=== PATIENT | male | born 1950 | race Caucasian/White ===

== ENCOUNTER 2019-08-02 10:28 | Observation (INO) ==
--- NOTE | 2019-07-28 16:12 | Anesthesiology Consultation ---
Date of Service July 28, 2019 Assessment & Plan Chart Review Chart Review: Acceptable Risk for Surgery and Patient NOT seen in Pre Admission Testing Consults Requested none History Surgery Operation Date: 08/02/19 12:25 Proposed Procedures p Greenlight Transurethral Resection of Prostate, Photoselective Vaporization of the Prostate using Greenlight Laser - Manoj Tomas II, DO Height/Weight Height: 5 ft 10 in Weight: 85.275 kg Allergies Allergy/AdvReac Type Severity Reaction Status Date / Time No Known Allergies Allergy Verified 07/28/19 08:41 Medications Home Medications Medication Instructions Recorded Confirmed Last Taken amlodipine 5 mg tablet 5 mg PO HS 07/27/19 07/28/19 Unknown atorvastatin 20 mg tablet 20 mg PO HS 07/27/19 07/28/19 Unknown finasteride 5 mg tablet 5 mg PO HS 07/27/19 07/28/19 Unknown cyanocobalamin (vitamin B-12) 1,000 mcg PO QAM 07/28/19 07/28/19 Unknown doxycycline hyclate 100 mg PO UD PRN 07/28/19 07/28/19 Unknown ezetimibe 10 mg PO QAM 07/28/19 07/28/19 Unknown lisinopril 40 mg PO QAM 07/28/19 07/28/19 Unknown multivitamin 1 tab PO DAILY 07/28/19 07/28/19 Unknown pantoprazole 40 mg PO QAM 07/28/19 07/28/19 Unknown rivaroxaban [Xarelto] 20 mg PO PM 07/28/19 07/28/19 Unknown tolterodine 4 mg PO HS 07/28/19 07/28/19 Unknown Past Medical History Medical History Urinary frequency BPH (benign prostatic hyperplasia) Atrial fibrillation REASON FOR XARELTO (FOLLOW WITH DR. GONZALEZ IN [facility]) Barretts esophagus GERD (gastroesophageal reflux disease) Hyperlipidemia Hypertension Past Family History Family History Father Hypertension Past Surgical History Surgical History History of colonoscopy History of esophagogastroduodenoscopy (EGD) History of herniorrhaphy RT/LEFT INGUINAL Social History Smoking Status: Never smoker Do You Dip or Chew Tobacco: No Hx Alcohol Use: Yes Alcohol type: beer alcohol intake frequency: a few times a month Hx Substance Use: No substance use type: does not use Testing Laboratory Results WBC: 4.7 H/H: 13.7/41.9 PLATELETS: 320 SODIUM: 135 POTASSIUM: 4.3 CHLORIDE: 100 CO2: 28 BUN: 14 CREATININE: 0.99 GLUCOSE: 110 Electrocardiogram Date: 06/24/19 Findings: + NSR @ (64) voltage criteria for LVH, possibly biventricular hypertrophy Echocardiogram Date: 03/21/18 EF: 55-60% LV Function: normal Other Findings: + diastolic dysfunction (grade 1) Nl RV function, mild tricuspid regurg, borderline aortic root dilation
[~2019-08-02 10:28] MED LIST: CEFAZOLIN 2000MG 2,000 MG/15 ML SYR IV SCH; LR 15ML/HR IV SCH
--- NOTE | 2019-08-02 10:34 | History & Physical Bridge Note ---
Date of Service August 02, 2019 History & Physical Bridge Note I have examined the patient, reviewed the History & Physical and in the interval since the performance of the History & Physical I have noted the following changes of clinical significance: no changes noted
[2019-08-02] MEDS ORDERED: fentaNYL citrate 100 MCG/2 ML VIAL ONE (10:39)
[2019-08-02] MEDS ORDERED: LIDOCAINE HCL 2% 2 ML VIAL/AMP(20MG/ML) INFIL ONE (10:39)
[2019-08-02] MEDS ORDERED: PROPOFOL IV EMULSION 10 MG/ML 20 ML VIAL IV ONE (10:39)
[2019-08-02] MEDS ORDERED: DEXAMETHASONE SOD INJ 4 MG/ML VIAL ONE (10:39)
[2019-08-02] MEDS ORDERED: ONDANSETRON INJ 2 MG/ML 2 ML VIAL ONE (10:39)
[2019-08-02] MEDS ORDERED: HYDROmorphone INJ 1 MG/ML SYRINGE IV PRN (11:13)
[2019-08-02] MEDS ORDERED: ONDANSETRON INJ 2 MG/ML 2 ML VIAL IV PRN ×2 (11:13→15:22)
[2019-08-02] MEDS ORDERED: fentaNYL citrate 100 MCG/2 ML VIAL IV PRN (11:13)
[2019-08-02] MEDS ORDERED: ePHEDrine sulfate 50 MG/ML AMP IV PRN (11:13)
[2019-08-02] MEDS ORDERED: ATROPINE SULFATE 0.1 MG/ML 10ML SYR IV PRN (11:13)
[2019-08-02] MEDS ORDERED: ePHEDrine sulfate 50 MG/ML SYR ONE (12:55)
[2019-08-02] MEDS ORDERED: KETOROLAC 30 MG/ML VIAL ONE (12:55)
[2019-08-02] MEDS ORDERED: BELLADONNA/OPIUM SUPP 60 MG SUPP PR ONE ×2 (13:29→13:33)
--- NOTE | 2019-08-02 13:45 | Operative Report ---
Post Operative Report Pre & Post Diagnosis Operation Date: 08/02/19 11:05 Pre-Op Diagnosis: Benign Prostate Hyperplasia w/Urinary Obstruction Post-Op Diagnosis: Benign Prostate Hyperplasia w/Urinary Obstruction Procedure Operation Date: 08/02/19 11:05 Actual Procedures p Greenlight Photoselective Vaporization of the Prostate with enucleation of lateral lobes and transurethral resection of prostate and adenoma with bipolar loop. - Manoj Tomas II, DO Surgeon Manoj Tomas II, DO Workforce Development Vice President None Estimated Blood Loss 10 Findings Consistent with Post-Op Diagnosis Extremely large prostate with large lateral lobes. Specimens Prostate adenoma and resection chips. Drains [address]ter 30 cc balloon Anesthesia Type General Complications none Disposition Disposition: Recovery Room Indications Extremely large prostate with GH issues and on Xarelto for antiocoagulation. Risks and benefits discussed at length. Description of Procedure Patient was consented and brought back to the operating room. Patient was placed under anesthesia in the supine position and moved to the dorsal lithotomy position. Patient was prepped and draped in the regular sterile fashion. A time out was completed. A 30degree Cystoscope was placed into the bladder and the entire bladder was examined. The prostate was found to be extremely large and easily bleeding from large varicosity. The scope with laser bridge was placed. The 5 and 7 oclock channels were created with vaporization from bladder neck to region of veru. All important structures were identified prior to starting. The channels were then connected by vaporizing between the 5 - 8 oclock to vaporize the median lobe. The 1 and 11 oclock positions were then vaporized down to capsule. Starting on the left, the large lateral lobe was enuculeated from 1 to 6 oclock and placed into the bladder. This was then completed on the right from 11 to 8 oclock. The large adenomas were displaced into the bladder. The resection bed was then further vaporized. A large amount of prostate stones were discovered on the right. The anterior portion was also vaporized to debulk. Good vaporization had been achieved with opening of the channel. The reseciton scope with a bipolar loop was resected. Additional tissue was resected around the prostate. The large ad enomas in the bladder were resected into segments for removal. This was all irrigated and sent for analysis. The entire bladder and resection bed and urethra were inspected a final time. ALl bleeding had been controlled. The scope was removed. A [address] was [address] and clear fluid drained. The side port was plugged. The patient was cleaned, aroused from anesthesia, and transferred to the pacu in stable condition having tolerated the procedure well with no complications. I was present and participated in all aspects of the procedure. The patient will be monitored in the PACU until transferred. I attest to the content of the Intraoperative Record and any orders documented therein. Any exceptions are noted below.
--- NOTE | 2019-08-02 14:25 | Anesthesiology Progress Note ---
Date of Service August 02, 2019 Anesthesia Post Procedure Vital Signs Vital Signs: Temp Pulse Pulse Resp BP Pulse Ox 08/02/19 14:15 59 L 15 120/66 97 08/02/19 14:05 58 L 14 123/72 100 08/02/19 13:55 59 L 12 115/60 100 08/02/19 13:48 36.1 C L 64 10 L 122/67 98 08/02/19 10:52 36.5 C 55 L 18 136/72 99 Pain Intensity Penis: Pain Intensity: 0 Transfer of Care Handoff Completed per policy Notes Mental Status: alert / awake / arousable and participated in evaluation Patient Amnestic to Procedure: Yes Nausea / Vomiting: adequately controlled Pain: adequately controlled Airway Patency, RR, SpO2: stable & adequate BP & HR: stable & adequate Hydration State: stable & adequate Anesthetic Complications: no major complications apparent and Pt Satisfied with anesthetic care
[2019-08-02] MEDS ORDERED: BELLADONNA/OPIUM SUPP 60 MG SUPP PR PRN (15:22)
[2019-08-02] MEDS ORDERED: OXYCODONE HCL IR 5 MG TAB (IMMEDIATE RELEASE) PO PRN (15:22)
[2019-08-02] MEDS ORDERED: MoRPHine SULFATE 2 MG/ML CARP IV PRN (15:22)
[2019-08-02] MEDS ORDERED: SODIUM CHLORIDE 0.9% 1000ML 1,000 ML IV SCH (15:22)
[2019-08-02] MEDS ORDERED: DOXYCYCLINE HYCLATE 100 MG CAP PO PRN (15:22)
[2019-08-02 15:43] LABS: Basophils # (auto) 0.01 K/uL (0-0.2); Basophils % (auto) 0.1 %; Eosinophils # (auto) 0.03 K/uL (0-0.5); Eosinophils % (auto) 0.3 %; Hematocrit (blood only) 40.1 % (42-52); Hemoglobin 13.4 g/dL (14.0-18.0); Immature Granulocytes # (auto) 0.02 K/uL (0.00-0.02); Immature Granulocytes % (auto) 0.2 %; Lymphocytes # (auto) 0.78 K/uL (1.2-3.4); Lymphocytes % (auto) 6.7 %; Mean Corpuscular Hemoglobin 28.5 pg (25-34); Mean Corpuscular Hgb Conc 33.4 g/dL (32-36); Mean Corpuscular Volume 85.3 fL (80-100); Mean Platelet Volume 9.5 fL (7.4-10.4); Monocytes # (auto) 0.14 K/uL (0.11-0.59); Monocytes % (auto) 1.2 %; Neutrophils # (auto) 10.59 K/uL (1.4-6.5); Neutrophils % (auto) 91.5 %; Platelet Count 274 K/uL (130-400); RDW Coefficient of Variation 13.7 % (11.5-14.5); RDW Standard Deviation 42.6 fL (36.4-46.3); White Blood Count 11.57 K/uL (4.8-10.8)
[2019-08-02 16:44] LABS: Alanine Aminotransferase 30 U/L (12-78); Albumin Globulin Ratio 1.2 (0.9-2); Albumin Level 3.5 gm/dl (3.4-5.0); Alkaline Phosphatase 80 U/L (45-117); Aspartate Aminotransferase 18 U/L (15-37); BUN Creatinine Ratio 12.1 (10-20); Bilirubin,Total 0.4 mg/dl (0.2-1); Blood Urea Nitrogen 12 mg/dl (7-18); Calcium 8.3 mg/dl (8.5-10.1); Chloride 104 mmol/L (98-107); Creatinine Clr Calc Pharmacy 73.5 ml/min; Est GFR (African American) 90.8; Est GFR (Non-African American) 78.4; Glucose 111 mg/dl (70-99); Potassium 4.1 mmol/L (3.5-5.1); Sodium 138 mmol/L (136-145); Total Protein 6.5 gm/dl (6.4-8.2)
[2019-08-02 19:10] LABS: Anion Gap 1.2 (3-11)
[2019-08-02] MEDS: DOCUSATE SODIUM 100 MG CAP PO SCH (20:50)
[2019-08-02] MEDS ORDERED: AMLODIPINE BESYLATE 5 MG TAB PO SCH (21:00)
[2019-08-02] MEDS ORDERED: FINASTERIDE 5 MG TAB PO SCH (21:00)
[2019-08-02] MEDS ORDERED: ATORVASTATIN 20 MG TAB PO SCH (21:00)
[2019-08-02] MEDS ORDERED: TOLTERODINE TARTRATE LA 4 MG CAPCR PO SCH (21:00)
[2019-08-02] MEDS ORDERED: Nursing to Pharmacy Communication ONE (22:17)
--- NOTE | 2019-08-03 07:44 | Anesthesiology Progress Note ---
Date of Service August 03, 2019 Anesthesia Post Procedure Vital Signs Vital Signs: Temp Pulse Pulse Resp BP BP Pulse Ox 08/03/19 04:00 37 C 59 L 16 114/60 97 08/02/19 23:10 36.6 C 61 16 102/42 L 97 08/02/19 22:11 08/02/19 20:47 59 L 116/69 08/02/19 18:16 36.7 C 60 16 117/68 93 08/02/19 17:23 36.6 C 61 18 110/67 97 08/02/19 16:30 36.4 C L 66 12 106/59 L 98 08/02/19 15:57 36.0 C L 64 12 101/58 L 96 08/02/19 15:49 36.4 C L 61 16 107/59 L 98 08/02/19 15:24 36.4 C L 63 14 112/65 97 08/02/19 15:10 36.4 C L 59 L 14 109/68 98 08/02/19 14:55 36.4 C L 60 14 121/64 96 08/02/19 14:45 36.4 C L 55 L 14 127/70 96 08/02/19 14:35 36.4 C L 57 L 14 107/75 96 08/02/19 14:25 56 L 14 113/69 98 08/02/19 14:15 59 L 15 120/66 97 08/02/19 14:05 58 L 14 123/72 100 08/02/19 13:55 59 L 12 115/60 100 08/02/19 13:48 36.1 C L 64 10 L 122/67 98 08/02/19 10:52 36.5 C 55 L 18 136/72 99 Pulse Ox 08/03/19 04:00 08/02/19 23:10 08/02/19 22:11 94 08/02/19 20:47 08/02/19 18:16 08/02/19 17:23 08/02/19 16:30 08/02/19 15:57 08/02/19 15:49 08/02/19 15:24 08/02/19 15:10 08/02/19 14:55 08/02/19 14:45 08/02/19 14:35 08/02/19 14:25 08/02/19 14:15 08/02/19 14:05 08/02/19 13:55 08/02/19 13:48 08/02/19 10:52 Pain Intensity Penis: Pain Intensity: 0 Notes Mental Status: alert / awake / arousable and participated in evaluation Patient Amnestic to Procedure: Yes Nausea / Vomiting: adequately controlled Pain: adequately controlled Airway Patency, RR, SpO2: stable & adequate BP & HR: stable & adequate Hydration State: stable & adequate Anesthetic Complications: no major complications apparent
[2019-08-03] MEDS: DOCUSATE SODIUM 100 MG CAP PO SCH (08:38)
--- NOTE | 2019-08-03 08:55 | Urology Progress Note ---
Date of Service August 03, 2019 Assessment & Plan (1) BPH (benign prostatic hyperplasia): POD #1 s/p GLTURP with Dr. Tomas Tolerating PO, ambulating independently. Sim draining red urine, no clots. VSS, afebrile. Pt is doing well, pain controlled. Plan to discharge home with sim catheter in place. Hold Xarelto for 2 additional days, okay to restart on . Okay to discharge home after lunch, with sim catheter. Expected clinical course reviewed. Subjective 69yo M POD #1 s/p GLTURP with Dr. Tomas. Uneventful evening, he did not get great sleep but relates this to environment change. Tolerating PO without difficulty. No flatus yet but feels he may try to have BM soon. 3-way sim intact, draining pink/red tinged urine to gravity. Pt denies suprapubic pain or bladder spasms. Denies n/v/f/c. Denies cp/sob. Review of Systems Review of Systems: All systems reviewed & are unremarkable except as noted in HPI & below Physical Exam Constitutional: no acute distress and not ill appearing Eyes: no nystagmus ENMT: Ears: no hearing impairment Neck: trachea midline Respiratory: no respiratory distress and no cough Cardiovascular: Vessels: no JVD Chest (Breasts): Chest: normal inspection of chest Gastrointestinal (Abdomen): Inspection/Auscultation: abdomen not distended and no abdominal edema Percussion/Palpation: abdomen soft; abdomen nontender Musculoskeletal: Head/Neck/Chest: normocephalic and head atraumatic Skin: no rashes, warm and dry Neurologic: awake; not confused and not obtunded Psychiatric: Orientation: alert and oriented x 3 Eye Contact: good eye contact Affect: no depressed affect Genitourinary: no CVA tenderness sim draining red, no clots. Mild clotting to tip of penis. Lymphatic: no lymphadenopathy and no lymphedema Results & Data Vital Signs (Past 12 Hours) Vital Signs Temp Pulse Resp BP Pulse Ox Pulse Ox 08/03/19 08:13 97 08/03/19 07:32 37.0 C 59 L 16 121/71 97 08/03/19 04:00 37 C 59 L 16 114/60 97 08/02/19 23:10 36.6 C 61 16 102/42 L 97 08/02/19 22:11 94 Laboratory Results Laboratory Results - last 48 hr 08/02/19 08/02/19 15:30 15:30 WBC 11.57 H RBC 4.70 Hgb 13.4 L Hct 40.1 L MCV 85.3 MCH 28.5 MCHC 33.4 RDW Std Deviation 42.6 RDW Coeff of Jailyn 13.7 Plt Count 274 MPV 9.5 Immature Gran % (Auto) 0.2 Neut % (Auto) 91.5 Lymph % (Auto) 6.7 Morrison % (Auto) 1.2 Eos % (Auto) 0.3 Baso % (Auto) 0.1 Immature Gran # (Auto) 0.02 Neut # (Auto) 10.59 H Lymph # (Auto) 0.78 L Morrison # (Auto) 0.14 Eos # (Auto) 0.03 Baso # (Auto) 0.01 Sodium 138 Potassium 4.1 Chloride 104 Carbon Dioxide TNP Anion Gap 1.2 L BUN 12 Creatinine 0.98 Est Cr Clr Drug Dosing 73.5 Est GFR ( Amer) 90.8 Est GFR (Non-Af Amer) 78.4 BUN/Creatinine Ratio 12.1 Glucose 111 H Calcium 8.3 L Total Bilirubin 0.4 AST 18 ALT 30 Alkaline Phosphatase 80 Total Protein 6.5 Albumin 3.5 Globulin 3.0 Albumin/Globulin Ratio 1.2
[2019-08-03] MEDS ORDERED: CYANOCOBALAMIN 500 MCG TABLET (VITAMIN B-12) PO SCH (09:00)
[2019-08-03] MEDS ORDERED: LISINOPRIL 40 MG TAB PO SCH (09:00)
[2019-08-03] MEDS ORDERED: EZETIMIBE 10 MG TABLET PO SCH (09:00)
[2019-08-03] MEDS ORDERED: PANTOprazole 40 MG TAB PO SCH (09:00)
--- NOTE | 2019-08-03 10:45 | Discharge Summary ---
Date of Service August 03, 2019 Principal Diagnosis BPH with LUTS Discharge Exam Constitutional no acute distress and not ill appearing Eyes no nystagmus ENMT Ears: no hearing impairment Neck trachea midline Respiratory no respiratory distress and no cough Cardiovascular Vessels: no JVD Chest (Breasts) Chest: normal inspection of chest Gastrointestinal (Abdomen) Inspection/Auscultation: abdomen not distended and no abdominal edema Percussion/Palpation: abdomen soft; abdomen nontender Musculoskeletal Head/Neck/Chest: normocephalic and head atraumatic Skin no rashes, warm and dry Neurologic awake; not confused and not obtunded Psychiatric Orientation: alert and oriented x 3 Eye Contact: good eye contact Affect: no depressed affect Genitourinary hematuria mild clot around tip of penis 3-way catheter intact Lymphatic no lymphadenopathy and no lymphedema Discharge Data Allergies Allergy/AdvReac Type Severity Reaction Status Date / Time No Known Allergies Allergy Verified 08/02/19 10:47 Procedures Performed Operation Date: 08/02/19 11:05 Actual Procedures p Greenlight Transurethral Resection of Prostate, Photoselective Vaporization of the Prostate using Greenlight Laser, (Not Applicable) - Manoj Tomas II, DO s Transurethral Resection of Prostate with loop (Not Applicable) - Manoj Tomas II, DO Hospital Course (1) BPH (benign prostatic hyperplasia): Pt admitted for scheduled GLTURP by Dr. Tomas on 08/02/2019. Kept overnight for observation. Pt doing well, tolerated PO this AM. No complications observed. VSS, afebrile. Sim draining pink/red without clots. Pt is ready for discharge. Total Time Total Time Spent Total Time Spent (In Minutes): 15 Total Time Includes: Examination of the Patient, Discharge Planning, Medication Reconciliation and Communication With Other Providers Discharge Plan Discharge Items Patient Disposition: Home - Self-Care Reason For Visit: Benign Prostate Hyperplasia w/Urinary Obstruction Discharge Diagnosis: Same Discharge Goals: Decrease discomfort Activity: Resume your previous activity Lifting: No more than 10 pounds Bathing: Keep incision dry Sexual Activity: Wait until after follow-up appointment Exercise/Sports: Wait until after follow-up appointment Driving/Machine Use: Resume 1 day after discharge Non-emergency contact: Urologist Call non-emergency contact if: you have any medication questions, your symptoms worsen, your pain is not controlled, your pain is worsening, your pain is unusual for you, your pain is concerning for you and you have a fever Follow-up/Referrals: Manoj Tomas II, DO [Physician] - 08/24/19 3:15 pm Erlinda Cobian DO [Primary Care Provider] - [facility],Nurse [Physician] - 08/06/19 12:00 pm (sim removal) Diet: Regular Addtl Provider Instructions: May have blood in urine. May have pelvic discomfort. Call if any fevers or chills. Sim care instructions per nursing. Please take all medications as prescribed and keep all follow-ups as scheduled. Please call our office at [phone] with any questions, concerns or need to reschedule appointments for any reason. We are happy to assist you. Hold Xarelto until , okay to restart night if blood in urine is beginning to slow down. Tips for your recovery at home: Dont be alarmed by brownish or reddish blood or clots in your urine. This is a result of the procedure. However, if this does not improve after 1 week, please contact our office. Drink plenty of fluids during the day (enough to keep your urine very light colored). This will help keep a healthy flow of urine. Do not lift >25 lbs until your followup Avoid constipation. Please use a stool softener (Colace) for the first two weeks after your procedure Be sure to finish the antibiotics as prescribed. If you go home with a catheter, please wash tubing where it enters your body twice daily with mild soap (Dove or Dial). Once your catheter is removed, expect some blood in your urine and some burning when you urinate. You should have an appointment to have this removed, if you do not please call our office to arrange. When to call [facility] [place] [facility] at [phone]: Your urine contains heavy blood clots You are constantly leaking urine Fever of 101F or higher, chills, nausea, or vomiting Your pain is not relieved with medication Prescriptions: New oxycodone-acetaminophen [Percocet] 7.5-325 mg tablet 1 tab PO Q8H PRN (Reason: pain) Qty: 10 RF: 0 docusate sodium [Colace] 100 mg capsule 100 mg PO BID Qty: 60 RF: 0 cephalexin 500 mg capsule 500 mg PO BID 7 Days Qty: 14 RF: 0 Continued amlodipine 5 mg tablet 5 mg PO HS RF: 0 finasteride 5 mg tablet 5 mg PO HS RF: 0 atorvastatin [Lipitor] 20 mg tablet 20 mg PO HS RF: 0 multivitamin Tablet 1 tab PO DAILY RF: 0 tolterodine 4 mg Capsule,Extended Release 24hr 4 mg PO HS RF: 0 cyanocobalamin (vitamin B-12) 1,000 mcg Tablet 1,000 mcg PO QAM RF: 0 pantoprazole 40 mg Tablet,Delayed Release (Dr/Ec) 40 mg PO QAM RF: 0 lisinopril 40 mg Tablet 40 mg PO QAM RF: 0 doxycycline hyclate 100 mg Tablet 100 mg PO UD PRN (Reason: ROSACEA BREAKOUT) RF: 0 ezetimibe 10 mg Tablet 10 mg PO QAM RF: 0 Xarelto 20 mg Tablet 20 mg PO PM RF: 0 Stand-Alone Forms: On License Of [facility] Discharge Orders: Discharge Order (Routine); Ordered 08/03/19 Ordered By: Archana Meek Admission Data Admit Date/Time: 08/02/19 13:05 Attending Provider: Manoj Tomas II Admit Provider: Manoj Tomas II Primary Care Provider: Erlinda Cobian Service: Surgical Services Other Interventions: Discharge Summary Assessment (RN) Last Done: 08/03/19 10:28
[2019-08-03] MEDS ORDERED: MULTIVITAMIN TAB PO SCH (11:30)
== END 2019-08-03 13:04 | disposition home or self-care (01) ==
LOC: ASU 10:28 → 3N 10:28